=== PATIENT | female | born 1945 | race Caucasian/White ===

== ENCOUNTER 2022-02-07 14:41 | Inpatient (IN) | payer MEDICARE, MEDICAID ==
[~2022-02-07] VITALS: Ht 167.6 cm; Wt 85.0 kg
[~2022-02-07 14:41] MED LIST: ESCI20TA29 PO; PRAV40TA65 PO; VALS160T2 PO
[2022-02-07 15:49] LABS: BASOPHILS % (AUTO) 0.1 % (0-1); EOSINOPHILS # (AUTO) 0.2 X10'3 (0-0.9); EOSINOPHILS % (AUTO) 2.3 % (0-6); HEMOGLOBIN 12.1 g/dl (12.0-16.0); LYMPHOCYTES # (AUTO) 0.2 X10'3 (1.1-4.8); LYMPHOCYTES % (AUTO) 3.4 % (21-51); MEAN CORPUSCULAR HEMOGLOBIN 29.9 PG (27.0-31.0); MEAN CORPUSCULAR HGB CONC 32.7 g/dL (33.0-36.5); MEAN CORPUSCULAR VOLUME 91.4 FL (78-98); MEAN PLATELET VOLUME 7.2 FL (7.4-10.4); MONOCYTES # (AUTO) 0.4 X10'3 (0-0.9); MONOCYTES % (AUTO) 5.6 % (2-12); NEUTROPHILS # (AUTO) 6.1 X10'3 (1.8-7.7); NEUTROPHILS % (AUTO) 88.6 % (42-75); PLATELET COUNT 157 X10'3 (140-440); RED BLOOD COUNT 4.05 X10'6 (4.20-5.60); WHITE BLOOD COUNT 6.9 X10'3 (4.5-11.0)
[2022-02-07 15:58] LABS: ALANINE AMINOTRANSFERASE 33 U/L (12-78); ALBUMIN 3.6 G/DL (3.4-5.0); ALBUMIN/GLOBULIN RATIO 1.1 (1.1-1.5); ALKALINE PHOSPHATASE 46 IU/L (46-116); ANION GAP 10 (8-16); ASPARTATE AMINO TRANSFERASE 21 U/L (10-37); BILIRUBIN,TOTAL 0.4 MG/DL (0.1-1.0); BLOOD UREA NITROGEN 18 MG/DL (7-18); BUN/CREATININE RATIO 17.1 (6.6-38.0); CALCIUM 8.7 MG/DL (8.5-10.1); CHLORIDE 103 MMOL/L (99-107); CREATININE 1.05 MG/DL (0.40-0.90); GLUCOSE 161 MG/DL (70-104); POTASSIUM 3.7 MMOL/L (3.5-5.1); SODIUM 141 MMOL/L (135-145); TOTAL CARBON DIOXIDE 28.4 MMOL/L (24-32); TOTAL PROTEIN 6.8 G/DL (6.4-8.2); eGFR 51 ML/MIN
[2022-02-07] MEDS ORDERED: iohexol 350MG/ML 100ml bottle IV ONE (17:13)
[2022-02-07] MEDS ORDERED: heparin 10,000 units/1 ML INJ IV ONE ×2 (17:50→18:00)
[2022-02-07] MEDS: heparin 25,000 UNIT/250ml bag 250 ML IV SCH (18:21)
[2022-02-07] MEDS ORDERED: HYDROcodone/acetaminophen 5mg/325mg tablet PO PRN (20:35)
[2022-02-07] MEDS ORDERED: acetaminophen 325mg tablet PO PRN ×2 (20:35)
[2022-02-07] MEDS ORDERED: ondansetron/PF 4mg/2ml inj IV PRN (20:35)
[2022-02-07] MEDS ORDERED: morphine 2 MG/ML inj. syringe IV PRN (20:35)
[2022-02-07] MEDS ORDERED: heparin 25,000 UNIT/250ml bag 250 ML IV SCH (20:35)
[2022-02-07] MEDS ORDERED: heparin 10,000 units/1 ML INJ IV PRN (20:35)
[2022-02-07] MEDS ORDERED: RISP0.253 PO (20:53)
[2022-02-07] MEDS ORDERED: PEG15DRO14 EACHEYE (20:53)
[2022-02-07] MEDS ORDERED: ALBU18HF2 IH (20:53)
[2022-02-07] MEDS ORDERED: MONT-40 PO (20:53)
[2022-02-07] MEDS ORDERED: CHOL500050 PO (20:53)
[2022-02-07] MEDS ORDERED: AZEL205. BOTHNARES (20:53)
[2022-02-07] MEDS ORDERED: LOSA50TA64 PO (20:53)
[2022-02-07] MEDS ORDERED: OXYB5TAB16 PO (20:53)
[2022-02-07] MEDS ORDERED: LEVO125T8 PO (20:53)
[2022-02-07] MEDS ORDERED: METF-1203 PO (20:53)
[2022-02-07] MEDS ORDERED: OLOP5DRO26 EACHEYE (20:53)
[2022-02-07] MEDS ORDERED: ASPI-1468 PO (20:53)
[2022-02-07] MEDS ORDERED: ESCI20TA39 PO (20:53)
[2022-02-07] MEDS ORDERED: CALC-1276 PO (20:53)
[2022-02-07] MEDS ORDERED: PRAV80TA3 PO (20:53)
[2022-02-07] MEDS ORDERED: OMEP20TA5 PO (20:53)
[2022-02-07 21:20] LABS: D-DIMER 0.96 MG/L FEU (0-0.50)
[2022-02-07] MEDS: normal saline 1000ml 1,000 ML IV SCH (21:28)
--- NOTE | 2022-02-07 22:45 | NUR ---
NG TUBE PLACED. RECEIVED VO TO ORDER CXR TO VERIFY PLACEMENT. ORDER PLACED.
[2022-02-08] VITALS (7 sets, daily range): BP systolic 120–159; BP diastolic 50–70
[2022-02-08 04:10] LABS: BASOPHILS % (AUTO) 0.1 % (0-1); EOSINOPHILS # (AUTO) 0.1 X10'3 (0-0.9); EOSINOPHILS % (AUTO) 2.1 % (0-6); HEMATOCRIT 33.9 % (35.0-45.0); HEMOGLOBIN 11.2 g/dl (12.0-16.0); LYMPHOCYTES # (AUTO) 0.4 X10'3 (1.1-4.8); LYMPHOCYTES % (AUTO) 6.1 % (21-51); MEAN CORPUSCULAR HEMOGLOBIN 29.9 PG (27.0-31.0); MEAN CORPUSCULAR VOLUME 90.6 FL (78-98); MONOCYTES # (AUTO) 0.6 X10'3 (0-0.9); MONOCYTES % (AUTO) 8.2 % (2-12); NEUTROPHILS # (AUTO) 5.7 X10'3 (1.8-7.7); NEUTROPHILS % (AUTO) 83.5 % (42-75); PLATELET COUNT 143 X10'3 (140-440); RED BLOOD COUNT 3.75 X10'6 (4.20-5.60); RED CELL DISTRIBUTION WIDTH 14.8 % (11.5-14.5); WHITE BLOOD COUNT 6.8 X10'3 (4.5-11.0)
[2022-02-08 04:36] LABS: ALANINE AMINOTRANSFERASE 40 U/L (12-78); ALBUMIN 3.1 G/DL (3.4-5.0); ALBUMIN/GLOBULIN RATIO 1.1 (1.1-1.5); ALKALINE PHOSPHATASE 48 IU/L (46-116); ANION GAP 8 (8-16); ASPARTATE AMINO TRANSFERASE 32 U/L (10-37); BILIRUBIN,TOTAL 0.3 MG/DL (0.1-1.0); BLOOD UREA NITROGEN 14 MG/DL (7-18); BUN/CREATININE RATIO 16.9 (6.6-38.0); CALCIUM 7.8 MG/DL (8.5-10.1); CHLORIDE 106 MMOL/L (99-107); CREATININE 0.83 MG/DL (0.40-0.90); GLUCOSE 132 MG/DL (70-104); POTASSIUM 3.8 MMOL/L (3.5-5.1); SODIUM 143 MMOL/L (135-145); TOTAL CARBON DIOXIDE 29.5 MMOL/L (24-32); TOTAL PROTEIN 5.8 G/DL (6.4-8.2); eGFR 67 ML/MIN
[2022-02-08] MEDS: montelukast 10mg tablet PO SCH (07:42)
[2022-02-08] MEDS: levoTHYROXINE 125mcg tablet PO SCH (07:43)
[2022-02-08] MEDS: losartan 50mg tablet PO SCH (07:43)
[2022-02-08] MEDS: ESCITALOPRAM OXALATE 5 MG TABLET PO SCH (07:43)
[2022-02-08] MEDS: atorvastatin 20mg tablet PO SCH (07:43)
[2022-02-08] MEDS: pantoprazole 40mg Tablet.DR PO SCH (07:44)
[2022-02-08] MEDS: tetrahydrozoline 0.05% 15ml ophthalmic drops EACHEYE SCH ×2 (08:00→20:54)
[2022-02-08] MEDS ORDERED: PEG 400/HYPROMELLOSE/GLYCERIN 15ml bottle EACHEYE SCH (08:00)
[2022-02-08] MEDS: simethicone 80mg chew tab PO SCH ×3 (08:55→20:53)
[2022-02-08] MEDS: azelastine Nasal Spray bottle NS SCH ×2 (09:30→20:52)
[2022-02-08] MEDS: heparin 25,000 UNIT/250ml bag 250 ML IV SCH ×2 (10:30→15:10)
[2022-02-08] MEDS: normal saline 1000ml 1,000 ML IV SCH ×2 (10:53→15:02)
[2022-02-08] MEDS: metoclopramide 5 mg/ml inj IV SCH ×2 (13:28→20:11)
[2022-02-08] MEDS: sulfmethoxaz/trimethoprim inj 10 ML in dextrose 5%-water 240 ML IV SCH ×2 (15:02→20:11)
--- NOTE | 2022-02-08 18:13 | NUR ---
Problems reprioritized. Patient report given, questions answered & plan of care reviewed with Aurelia GROVER.
[2022-02-08] MEDS ORDERED: dextrose 50%-water 50ml dispensing syringe IV PRN ×2 (19:00)
[2022-02-08] MEDS ORDERED: insulin Lispro (HumaLOG) vial - multi-dose SQ SCH (19:00)
[2022-02-08] MEDS ORDERED: MESSAGE TO PHARMACY PO ONE (19:00)
[2022-02-08] MEDS ORDERED: glucagon, human recombinant 1mg kit SUBCUT PRN (19:00)
[2022-02-08] MEDS ORDERED: DEXTROSE 15 GM of carb/4 tabs (each vial/BOTTLE has 4 tablets) PO PRN ×2 (19:00)
[2022-02-08 19:31] LABS: HEMOGLOBIN A1C 6.8 % (4.5-6.2)
[2022-02-08] MEDS: heparin 10,000 units/1 ML INJ IV PRN (19:34)
[2022-02-08] MEDS: oxybutynin 5mg tablet PO SCH (20:17)
[2022-02-08] MEDS: risperiDONE 0.25mg tablet PO SCH (20:17)
[2022-02-08] MEDS: insulin glargine (Lantus) pen - multi-dose SQ SCH (21:00)
[2022-02-09] MEDS: sulfmethoxaz/trimethoprim inj 10 ML in dextrose 5%-water 240 ML IV SCH ×4 (01:56→21:45)
[2022-02-09] MEDS: metoclopramide 5 mg/ml inj IV SCH ×4 (01:58→20:42)
[2022-02-09 04:11] VITALS: BP 148/72
[2022-02-09 06:00] VITALS: BP 167/73
[2022-02-09 06:23] LABS: BASOPHILS % (AUTO) 0.2 % (0-1); EOSINOPHILS # (AUTO) 0.2 X10'3 (0-0.9); EOSINOPHILS % (AUTO) 3.5 % (0-6); HEMATOCRIT 32.5 % (35.0-45.0); HEMOGLOBIN 10.9 g/dl (12.0-16.0); LYMPHOCYTES # (AUTO) 0.7 X10'3 (1.1-4.8); LYMPHOCYTES % (AUTO) 15.6 % (21-51); MEAN CORPUSCULAR HEMOGLOBIN 30.5 PG (27.0-31.0); MEAN CORPUSCULAR HGB CONC 33.7 g/dL (33.0-36.5); MEAN CORPUSCULAR VOLUME 90.5 FL (78-98); MEAN PLATELET VOLUME 7.2 FL (7.4-10.4); MONOCYTES # (AUTO) 0.4 X10'3 (0-0.9); NEUTROPHILS # (AUTO) 3.2 X10'3 (1.8-7.7); NEUTROPHILS % (AUTO) 70.7 % (42-75); PLATELET COUNT 137 X10'3 (140-440); RED BLOOD COUNT 3.59 X10'6 (4.20-5.60); RED CELL DISTRIBUTION WIDTH 14.5 % (11.5-14.5); WHITE BLOOD COUNT 4.5 X10'3 (4.5-11.0)
[2022-02-09 06:36] LABS: ALANINE AMINOTRANSFERASE 39 U/L (12-78); ALBUMIN 2.9 G/DL (3.4-5.0); ALBUMIN/GLOBULIN RATIO 0.9 (1.1-1.5); ALKALINE PHOSPHATASE 40 IU/L (46-116); ANION GAP 7 (8-16); ASPARTATE AMINO TRANSFERASE 28 U/L (10-37); BILIRUBIN,TOTAL 0.2 MG/DL (0.1-1.0); BLOOD UREA NITROGEN 6 MG/DL (7-18); BUN/CREATININE RATIO 7.9 (6.6-38.0); CALCIUM 7.9 MG/DL (8.5-10.1); CHLORIDE 105 MMOL/L (99-107); CREATININE 0.76 MG/DL (0.40-0.90); GLUCOSE 122 MG/DL (70-104); POTASSIUM 3.7 MMOL/L (3.5-5.1); SODIUM 142 MMOL/L (135-145); TOTAL CARBON DIOXIDE 30.5 MMOL/L (24-32); eGFR 74 ML/MIN
--- NOTE | 2022-02-09 06:36 | NUR ---
Problems reprioritized. Patient report given, questions answered & plan of care reviewed with Lima GROVER.
[2022-02-09] MEDS: ESCITALOPRAM OXALATE 5 MG TABLET PO SCH (08:14)
[2022-02-09] MEDS: simethicone 80mg chew tab PO SCH ×3 (08:14→20:42)
[2022-02-09] MEDS: montelukast 10mg tablet PO SCH (08:15)
[2022-02-09] MEDS: atorvastatin 20mg tablet PO SCH (08:15)
[2022-02-09] MEDS: losartan 50mg tablet PO SCH (08:15)
[2022-02-09] MEDS: levoTHYROXINE 125mcg tablet PO SCH (08:15)
[2022-02-09] MEDS: azelastine Nasal Spray bottle NS SCH ×2 (08:18→20:42)
[2022-02-09] MEDS: heparin 25,000 UNIT/250ml bag 250 ML IV SCH (08:30)
[2022-02-09] MEDS: pantoprazole 40mg Tablet.DR PO SCH (08:49)
[2022-02-09 11:00] VITALS: BP 146/68
[2022-02-09] MEDS: tetrahydrozoline 0.05% 15ml ophthalmic drops EACHEYE SCH ×2 (11:47→20:42)
[2022-02-09] MEDS: normal saline 1000ml 1,000 ML IV SCH (11:48)
[2022-02-09 15:00] VITALS: BP 154/69
--- NOTE | 2022-02-09 18:18 | NUR ---
Problems reprioritized. Patient report given, questions answered & plan of care reviewed with Aurelia GROVER.
[2022-02-09 19:18] VITALS: BP 157/64
[2022-02-09] MEDS: risperiDONE 0.25mg tablet PO SCH (20:41)
[2022-02-09] MEDS: oxybutynin 5mg tablet PO SCH (20:41)
[2022-02-09] MEDS: insulin glargine (Lantus) pen - multi-dose SQ SCH (21:00)
[2022-02-09 22:44] VITALS: BP 110/74
[2022-02-10] MEDS: heparin 25,000 UNIT/250ml bag 250 ML IV SCH ×2 (00:30→18:46)
[2022-02-10] MEDS: sulfmethoxaz/trimethoprim inj 10 ML in dextrose 5%-water 240 ML IV SCH ×4 (03:12→19:35)
[2022-02-10] MEDS: metoclopramide 5 mg/ml inj IV SCH ×2 (03:12→08:36)
[2022-02-10 04:00] VITALS: BP 147/69
[2022-02-10] MEDS: normal saline 1000ml 1,000 ML IV SCH ×2 (05:35→20:04)
[2022-02-10 06:00] VITALS: BP 145/64
[2022-02-10 06:26] LABS: BASOPHILS % (AUTO) 0.4 % (0-1); EOSINOPHILS # (AUTO) 0.2 X10'3 (0-0.9); EOSINOPHILS % (AUTO) 3.3 % (0-6); HEMATOCRIT 31.8 % (35.0-45.0); HEMOGLOBIN 10.6 g/dl (12.0-16.0); LYMPHOCYTES # (AUTO) 0.7 X10'3 (1.1-4.8); LYMPHOCYTES % (AUTO) 14.5 % (21-51); MEAN CORPUSCULAR HEMOGLOBIN 30.5 PG (27.0-31.0); MEAN CORPUSCULAR HGB CONC 33.3 g/dL (33.0-36.5); MEAN CORPUSCULAR VOLUME 91.6 FL (78-98); MEAN PLATELET VOLUME 7.4 FL (7.4-10.4); MONOCYTES # (AUTO) 0.5 X10'3 (0-0.9); MONOCYTES % (AUTO) 8.9 % (2-12); NEUTROPHILS # (AUTO) 3.7 X10'3 (1.8-7.7); NEUTROPHILS % (AUTO) 72.9 % (42-75); PLATELET COUNT 133 X10'3 (140-440); RED BLOOD COUNT 3.47 X10'6 (4.20-5.60); RED CELL DISTRIBUTION WIDTH 14.8 % (11.5-14.5); WHITE BLOOD COUNT 5.1 X10'3 (4.5-11.0)
[2022-02-10 06:45] LABS: ALANINE AMINOTRANSFERASE 30 U/L (12-78); ALBUMIN 2.9 G/DL (3.4-5.0); ALBUMIN/GLOBULIN RATIO 0.9 (1.1-1.5); ALKALINE PHOSPHATASE 39 IU/L (46-116); ANION GAP 6 (8-16); ASPARTATE AMINO TRANSFERASE 17 U/L (10-37); BILIRUBIN,TOTAL 0.1 MG/DL (0.1-1.0); BLOOD UREA NITROGEN 5 MG/DL (7-18); BUN/CREATININE RATIO 6.1 (6.6-38.0); CALCIUM 8.2 MG/DL (8.5-10.1); CHLORIDE 102 MMOL/L (99-107); CREATININE 0.82 MG/DL (0.40-0.90); GLUCOSE 184 MG/DL (70-104); POTASSIUM 3.7 MMOL/L (3.5-5.1); SODIUM 138 MMOL/L (135-145); TOTAL CARBON DIOXIDE 29.6 MMOL/L (24-32); eGFR 68 ML/MIN
[2022-02-10] MEDS: azelastine Nasal Spray bottle NS SCH ×2 (08:35→19:56)
[2022-02-10] MEDS: tetrahydrozoline 0.05% 15ml ophthalmic drops EACHEYE SCH ×2 (08:35→19:58)
[2022-02-10] MEDS: losartan 50mg tablet PO SCH (08:35)
[2022-02-10] MEDS: simethicone 80mg chew tab PO SCH ×3 (08:35→19:52)
[2022-02-10] MEDS: levoTHYROXINE 125mcg tablet PO SCH (08:35)
[2022-02-10] MEDS: pantoprazole 40mg Tablet.DR PO SCH (08:36)
[2022-02-10] MEDS: atorvastatin 20mg tablet PO SCH (08:36)
[2022-02-10] MEDS: montelukast 10mg tablet PO SCH (08:36)
[2022-02-10] MEDS: ESCITALOPRAM OXALATE 5 MG TABLET PO SCH (08:36)
[2022-02-10 11:00] VITALS: BP 159/71
--- NOTE | 2022-02-10 12:13 | NUR ---
APtt lab result noted 58, keep current rate, will re-check at 1805.
[2022-02-10] MEDS ORDERED: furosemide 40mg/4ml inj IV ONE (12:15)
[2022-02-10] MEDS ORDERED: albuterol 2.5 MG/3 ML nebule NEB PRN (12:15)
--- NOTE | 2022-02-10 12:53 | NUR ---
patient NPO for procedure, per DR. Pretty saucedo to give PO meddication with sip of water.
[2022-02-10 15:00] VITALS: BP 147/69
[2022-02-10] MEDS: ipratropium/albuterol 3ml nebule NEB SCH ×2 (16:04→19:29)
[2022-02-10 18:00] VITALS: BP 152/70
--- NOTE | 2022-02-10 18:45 | NUR ---
Assumed pt. report from Santhosh GROVER. questions and concerns addressed. Addendum: 02/10/22 at 1856 by Barbara Ahn RN Amended: Links added.
--- NOTE | 2022-02-10 18:48 | NUR ---
Problems reprioritized. Patient report given Barbara, questions answered & plan of care reviewed with .
[2022-02-10] MEDS: budesonide 0.5mg/2ml UD nebule IH SCH (19:30)
[2022-02-10] MEDS: risperiDONE 0.25mg tablet PO SCH (19:52)
[2022-02-10] MEDS: oxybutynin 5mg tablet PO SCH (20:03)
[2022-02-10] MEDS: insulin glargine (Lantus) pen - multi-dose SQ SCH (21:00)
[2022-02-10] MEDS: heparin 10,000 units/1 ML INJ IV PRN (21:35)
[2022-02-10] MEDS: diatr meglu/diatrizoate 30ml oral sol.-(3 dose) bottle PO SCH (21:49)
[2022-02-10 22:00] VITALS: BP 152/70
[2022-02-11] MEDS: ipratropium/albuterol 3ml nebule NEB SCH ×7 (00:02→23:27)
[2022-02-11 02:00] VITALS: BP 136/61
[2022-02-11] MEDS: sulfmethoxaz/trimethoprim inj 10 ML in dextrose 5%-water 240 ML IV SCH ×4 (03:19→21:00)
[2022-02-11 04:01] LABS: APTT 67 SECONDS (22-32)
--- NOTE | 2022-02-11 05:00 | NUR ---
Pt. slept well with no s/s of active bleeding which on heparin drip this shift. PTT monitored and drip adjusted per protocol. Addendum: 02/11/22 at 0641 by Barbara Ahn RN Amended: Links added.
[2022-02-11 06:00] VITALS: BP 150/70
--- NOTE | 2022-02-11 06:30 | NUR ---
Problems reprioritized. Patient report given, questions answered & plan of care reviewed with Jami GROVER. Addendum: 02/11/22 at 0642 by Barbara Ahn RN Amended: Links added.
[2022-02-11 07:06] LABS: BASOPHILS % (AUTO) 0.3 % (0-1); EOSINOPHILS # (AUTO) 0.1 X10'3 (0-0.9); EOSINOPHILS % (AUTO) 3.1 % (0-6); HEMATOCRIT 31.9 % (35.0-45.0); HEMOGLOBIN 10.8 g/dl (12.0-16.0); LYMPHOCYTES # (AUTO) 0.8 X10'3 (1.1-4.8); LYMPHOCYTES % (AUTO) 17.7 % (21-51); MEAN CORPUSCULAR HEMOGLOBIN 30.4 PG (27.0-31.0); MEAN CORPUSCULAR HGB CONC 33.9 g/dL (33.0-36.5); MEAN CORPUSCULAR VOLUME 89.9 FL (78-98); MEAN PLATELET VOLUME 6.9 FL (7.4-10.4); MONOCYTES # (AUTO) 0.4 X10'3 (0-0.9); MONOCYTES % (AUTO) 9.4 % (2-12); NEUTROPHILS # (AUTO) 3.3 X10'3 (1.8-7.7); NEUTROPHILS % (AUTO) 69.5 % (42-75); PLATELET COUNT 145 X10'3 (140-440); RED BLOOD COUNT 3.55 X10'6 (4.20-5.60); RED CELL DISTRIBUTION WIDTH 14.5 % (11.5-14.5); WHITE BLOOD COUNT 4.8 X10'3 (4.5-11.0)
[2022-02-11] MEDS: budesonide 0.5mg/2ml UD nebule IH SCH ×2 (07:16→19:54)
[2022-02-11 07:22] LABS: ALANINE AMINOTRANSFERASE 25 U/L (12-78); ALBUMIN 2.9 G/DL (3.4-5.0); ALBUMIN/GLOBULIN RATIO 0.8 (1.1-1.5); ALKALINE PHOSPHATASE 40 IU/L (46-116); ANION GAP 8 (8-16); ASPARTATE AMINO TRANSFERASE 16 U/L (10-37); BILIRUBIN,TOTAL 0.2 MG/DL (0.1-1.0); BLOOD UREA NITROGEN 4 MG/DL (7-18); BUN/CREATININE RATIO 4.6 (6.6-38.0); CALCIUM 8.6 MG/DL (8.5-10.1); CHLORIDE 102 MMOL/L (99-107); CREATININE 0.87 MG/DL (0.40-0.90); GLUCOSE 121 MG/DL (70-104); POTASSIUM 3.8 MMOL/L (3.5-5.1); SODIUM 141 MMOL/L (135-145); TOTAL CARBON DIOXIDE 30.9 MMOL/L (24-32); TOTAL PROTEIN 6.5 G/DL (6.4-8.2); eGFR 63 ML/MIN
[2022-02-11] MEDS: levoTHYROXINE 125mcg tablet PO SCH (07:44)
[2022-02-11] MEDS: furosemide 20 MG/2 ML vial IV SCH (07:44)
[2022-02-11] MEDS: atorvastatin 20mg tablet PO SCH (07:44)
[2022-02-11] MEDS: diatr meglu/diatrizoate 30ml oral sol.-(3 dose) bottle PO SCH ×2 (07:45→21:00)
[2022-02-11] MEDS: ESCITALOPRAM OXALATE 5 MG TABLET PO SCH (07:45)
[2022-02-11] MEDS: pantoprazole 40mg Tablet.DR PO SCH (07:45)
[2022-02-11] MEDS: losartan 50mg tablet PO SCH (07:45)
[2022-02-11] MEDS: simethicone 80mg chew tab PO SCH ×3 (07:45→21:00)
[2022-02-11] MEDS: montelukast 10mg tablet PO SCH (07:45)
[2022-02-11] MEDS: azelastine Nasal Spray bottle NS SCH ×2 (07:46→20:00)
[2022-02-11] MEDS: tetrahydrozoline 0.05% 15ml ophthalmic drops EACHEYE SCH ×2 (07:55→21:35)
[2022-02-11] MEDS ORDERED: iohexol 300mg/ml 100ml inj. ONE (09:34)
--- NOTE | 2022-02-11 10:19 | NUR ---
Initial: Pt admitted w/ R acute pulmonary embolism, acute respiratory failure, abdominal ileus, and acute renal insufficiency per EMR. Pt currently on Clear liquid diet w/ mostly 0% intake of meals not meeting needs. Ileus persists and has not responded to Reglan per MD note. Pt at high risk for developing malnutrition if diet unable to be advanced. No BM documented this admit. Limited nutrition interventions at this time, will continue to monitor. Recs: 1. Advance to Regular diet as medically indicated 2. Monitor need for ONS once diet advanced 3. Bowel care per MD 4. Scaled wts Addendum: 02/11/22 at [address] Amended: Links added.
[2022-02-11] MEDS: normal saline 1000ml 1,000 ML IV SCH ×2 (10:23→19:33)
[2022-02-11 11:00] VITALS: BP 152/71
[2022-02-11] MEDS: heparin 25,000 UNIT/250ml bag 250 ML IV SCH (13:38)
--- NOTE | 2022-02-11 18:28 | NUR ---
Problems reprioritized. Patient report given, questions answered & plan of care reviewed with Gabriel GROVER.
[2022-02-11 19:00] VITALS: BP 158/71
[2022-02-11] MEDS: oxybutynin 5mg tablet PO SCH (21:00)
[2022-02-11] MEDS: insulin glargine (Lantus) pen - multi-dose SQ SCH (21:00)
[2022-02-11] MEDS: risperiDONE 0.25mg tablet PO SCH (21:00)
[2022-02-11 22:00] VITALS: BP 168/70
[2022-02-12] MEDS: sulfmethoxaz/trimethoprim inj 10 ML in dextrose 5%-water 240 ML IV SCH ×4 (01:47→22:17)
[2022-02-12] MEDS: ipratropium/albuterol 3ml nebule NEB SCH ×6 (03:16→23:43)
[2022-02-12 05:51] LABS: BASOPHILS % (AUTO) 0.2 % (0-1); EOSINOPHILS # (AUTO) 0.2 X10'3 (0-0.9); EOSINOPHILS % (AUTO) 4.9 % (0-6); HEMATOCRIT 33.3 % (35.0-45.0); HEMOGLOBIN 11.2 g/dl (12.0-16.0); LYMPHOCYTES # (AUTO) 0.6 X10'3 (1.1-4.8); LYMPHOCYTES % (AUTO) 13.1 % (21-51); MEAN CORPUSCULAR HEMOGLOBIN 30.4 PG (27.0-31.0); MEAN CORPUSCULAR HGB CONC 33.5 g/dL (33.0-36.5); MEAN CORPUSCULAR VOLUME 90.5 FL (78-98); MEAN PLATELET VOLUME 7.1 FL (7.4-10.4); MONOCYTES # (AUTO) 0.4 X10'3 (0-0.9); MONOCYTES % (AUTO) 9.4 % (2-12); NEUTROPHILS # (AUTO) 3.3 X10'3 (1.8-7.7); NEUTROPHILS % (AUTO) 72.4 % (42-75); PLATELET COUNT 165 X10'3 (140-440); RED BLOOD COUNT 3.67 X10'6 (4.20-5.60); RED CELL DISTRIBUTION WIDTH 14.7 % (11.5-14.5); WHITE BLOOD COUNT 4.6 X10'3 (4.5-11.0)
[2022-02-12 06:00] VITALS: BP 139/73
[2022-02-12 06:15] LABS: ALANINE AMINOTRANSFERASE 32 U/L (12-78); ALBUMIN/GLOBULIN RATIO 0.9 (1.1-1.5); ALKALINE PHOSPHATASE 41 IU/L (46-116); ANION GAP 6 (8-16); ASPARTATE AMINO TRANSFERASE 26 U/L (10-37); BILIRUBIN,TOTAL 0.2 MG/DL (0.1-1.0); BLOOD UREA NITROGEN 6 MG/DL (7-18); BUN/CREATININE RATIO 6.8 (6.6-38.0); CALCIUM 8.6 MG/DL (8.5-10.1); CHLORIDE 101 MMOL/L (99-107); CREATININE 0.88 MG/DL (0.40-0.90); GLUCOSE 124 MG/DL (70-104); POTASSIUM 3.8 MMOL/L (3.5-5.1); SODIUM 137 MMOL/L (135-145); TOTAL CARBON DIOXIDE 30.3 MMOL/L (24-32); TOTAL PROTEIN 6.3 G/DL (6.4-8.2); eGFR 62 ML/MIN
[2022-02-12] MEDS: budesonide 0.5mg/2ml UD nebule IH SCH ×2 (07:09→19:44)
[2022-02-12] MEDS: pantoprazole 40mg Tablet.DR PO SCH (08:17)
[2022-02-12] MEDS: losartan 50mg tablet PO SCH (08:17)
[2022-02-12] MEDS: simethicone 80mg chew tab PO SCH ×3 (08:17→22:16)
[2022-02-12] MEDS: ESCITALOPRAM OXALATE 5 MG TABLET PO SCH (08:17)
[2022-02-12] MEDS: levoTHYROXINE 125mcg tablet PO SCH (08:17)
[2022-02-12] MEDS: atorvastatin 20mg tablet PO SCH (08:17)
[2022-02-12] MEDS: furosemide 20 MG/2 ML vial IV SCH (08:17)
[2022-02-12] MEDS: montelukast 10mg tablet PO SCH (08:17)
[2022-02-12] MEDS: tetrahydrozoline 0.05% 15ml ophthalmic drops EACHEYE SCH ×2 (08:18→20:00)
[2022-02-12] MEDS: azelastine Nasal Spray bottle NS SCH ×2 (08:18→22:16)
[2022-02-12] MEDS: heparin 25,000 UNIT/250ml bag 250 ML IV SCH (08:54)
[2022-02-12 11:00] VITALS: BP 143/69
--- NOTE | 2022-02-12 12:38 | NUR ---
O2 Sat at rest on room air:_84__% If below 89%: Recovery O2 Sat at rest on _3__LPM:_91__%:___% via__nasal cannula_(mask/nasal cannula, etc..) No further documentation is necessary. If O2 Sat did not drop below 89% on room air,ambulate patient on room air. O2 Sat while ambulating on room air:___% Recovery O2 Sat while ambulating on ___LPM:___% No further documentation is necessary. If patient does not drop below 89% while ambulating, he/she does not qualify for home O2.
[2022-02-12 15:00] VITALS: BP 102/60
[2022-02-12] MEDS ORDERED: bisacodyl 10mg suppository rectal RC STA (15:28)
[2022-02-12] MEDS: normal saline 1000ml 1,000 ML IV SCH (16:17)
--- NOTE | 2022-02-12 18:04 | NUR ---
pt still constipated.. despite dulcolax suppository was given, made aware thru paged as instructed. will continue to monitor patient. PAGER ID: [phone] MESSAGE: [id number] HOFFMAN: doc, 2hours after dulcolax suppostiory was given still no bowel movement, but she has the urge, attempted to defecate twice but unsuccessful, she said she will still try again.
[2022-02-12] MEDS: insulin glargine (Lantus) pen - multi-dose SQ SCH (21:00)
[2022-02-12 22:00] VITALS: BP 165/76
[2022-02-12] MEDS: risperiDONE 0.25mg tablet PO SCH (22:16)
[2022-02-12] MEDS: oxybutynin 5mg tablet PO SCH (22:16)
[2022-02-13 02:00] VITALS: BP 148/70
[2022-02-13] MEDS: sulfmethoxaz/trimethoprim inj 10 ML in dextrose 5%-water 240 ML IV SCH ×4 (02:12→20:00)
[2022-02-13] MEDS: heparin 25,000 UNIT/250ml bag 250 ML IV SCH (02:15)
[2022-02-13] MEDS: ipratropium/albuterol 3ml nebule NEB SCH ×6 (03:48→23:08)
[2022-02-13] MEDS: normal saline 1000ml 1,000 ML IV SCH ×2 (05:24→15:28)
[2022-02-13 06:00] VITALS: BP 172/74
[2022-02-13] MEDS: budesonide 0.5mg/2ml UD nebule IH SCH ×2 (07:38→19:32)
[2022-02-13] MEDS: ESCITALOPRAM OXALATE 5 MG TABLET PO SCH (07:43)
[2022-02-13] MEDS: atorvastatin 20mg tablet PO SCH (07:44)
[2022-02-13] MEDS: furosemide 20 MG/2 ML vial IV SCH (07:44)
[2022-02-13] MEDS: simethicone 80mg chew tab PO SCH ×3 (07:44→20:49)
[2022-02-13] MEDS: montelukast 10mg tablet PO SCH (07:44)
[2022-02-13] MEDS: pantoprazole 40mg Tablet.DR PO SCH (07:44)
[2022-02-13] MEDS: losartan 50mg tablet PO SCH (07:44)
[2022-02-13] MEDS: levoTHYROXINE 125mcg tablet PO SCH (07:44)
[2022-02-13] MEDS: azelastine Nasal Spray bottle NS SCH ×2 (07:45→20:49)
[2022-02-13] MEDS: tetrahydrozoline 0.05% 15ml ophthalmic drops EACHEYE SCH ×2 (07:45→20:49)
[2022-02-13] MEDS ORDERED: bisacodyl 5mg tablet.DR PO ONE (10:20)
[2022-02-13] MEDS ORDERED: APIX5TAB3 PO (10:27)
[2022-02-13] MEDS ORDERED: DOCU-148 PO (10:29)
[2022-02-13] MEDS ORDERED: BISA-78 PO (10:29)
[2022-02-13 11:00] VITALS: BP 164/72
--- NOTE | 2022-02-13 13:23 | NUR ---
not tolerating advanced diet, patient felt nauseated.. made aware thru paged. PAGER ID: [phone] MESSAGE: [id number] HOFFMAN: doc, patient is not tolerating the regular diet though she tried but felt nauseated after a couple of bites. pls advise.
[2022-02-13] MEDS ORDERED: PEG 3350/Na sulf,bicarb,Cl/KCl oral sol 4 liter bottle PO ONE (13:50)
[2022-02-13 15:00] VITALS: BP 153/71
[2022-02-13 18:00] VITALS: BP 132/68
--- NOTE | 2022-02-13 18:17 | NUR ---
Problems reprioritized. Patient report given, questions answered & plan of care reviewed with Catherine GROVER.
[2022-02-13] MEDS: oxybutynin 5mg tablet PO SCH (20:49)
[2022-02-13] MEDS: risperiDONE 0.25mg tablet PO SCH (20:50)
[2022-02-13] MEDS: insulin glargine (Lantus) pen - multi-dose SQ SCH (21:00)
[2022-02-13 22:00] VITALS: BP 119/65
[2022-02-14 02:00] VITALS: BP 145/68
[2022-02-14] MEDS: sulfmethoxaz/trimethoprim inj 10 ML in dextrose 5%-water 240 ML IV SCH ×2 (02:00→07:37)
[2022-02-14] MEDS: ipratropium/albuterol 3ml nebule NEB SCH ×3 (03:30→10:38)
--- NOTE | 2022-02-14 05:04 | NUR ---
Antibiotic late administration. Orders to skip 0200 dose and give 0800. Will endorse to oncoming nurse.
[2022-02-14 06:00] VITALS: BP 142/69
[2022-02-14] MEDS: budesonide 0.5mg/2ml UD nebule IH SCH (07:18)
[2022-02-14] MEDS: furosemide 20 MG/2 ML vial IV SCH (07:35)
[2022-02-14] MEDS: simethicone 80mg chew tab PO SCH (07:35)
[2022-02-14] MEDS: atorvastatin 20mg tablet PO SCH (07:35)
[2022-02-14] MEDS: montelukast 10mg tablet PO SCH (07:36)
[2022-02-14] MEDS: levoTHYROXINE 125mcg tablet PO SCH (07:36)
[2022-02-14] MEDS: losartan 50mg tablet PO SCH (07:36)
[2022-02-14] MEDS: tetrahydrozoline 0.05% 15ml ophthalmic drops EACHEYE SCH (07:36)
[2022-02-14] MEDS: azelastine Nasal Spray bottle NS SCH (07:36)
[2022-02-14] MEDS: ESCITALOPRAM OXALATE 5 MG TABLET PO SCH (07:36)
[2022-02-14] MEDS: pantoprazole 40mg Tablet.DR PO SCH (07:36)
[2022-02-14] MEDS: normal saline 1000ml 1,000 ML IV SCH (07:47)
[2022-02-14 11:00] VITALS: BP 154/74
--- NOTE | 2022-02-14 13:00 | NUR ---
discharge instructions were explained to patient prior to discharge, stable for discharge as per MD, PIV discontinued with iv cannula tip complete and intact.
== END 2022-02-14 12:50 | disposition home or self-care (01) | DRG 175 ==
LOC: ER 14:41 → ED HOLD 20:36 → PCU 3S 22:35
PROVIDERS: ADMIT Internal Medicine; ATTEND Family Medicine
PROC: 0D9670Z Drainage of Stomach with Drainage Device, Via Natural or Artificial Opening (ICD-10-PCS; principal; 2022-02-07)
PROC: B32T1ZZ Computerized Tomography (CT Scan) of Left Pulmonary Artery using Low Osmolar Contrast (ICD-10-PCS; 2022-02-07)
PROC: B3201ZZ Computerized Tomography (CT Scan) of Thoracic Aorta using Low Osmolar Contrast (ICD-10-PCS; 2022-02-07)
PROC: B32S1ZZ Computerized Tomography (CT Scan) of Right Pulmonary Artery using Low Osmolar Contrast (ICD-10-PCS; 2022-02-07)
PROC: BW211ZZ Computerized Tomography (CT Scan) of Abdomen and Pelvis using Low Osmolar Contrast (ICD-10-PCS; 2022-02-11)
DX: I26.99 Other pulmonary embolism without acute cor pulmonale (principal); J96.01 Acute respiratory failure with hypoxia; K56.7 Ileus, unspecified; Z20.822 Contact with and (suspected) exposure to COVID-19; D73.89 Other diseases of spleen; E03.9 Hypothyroidism, unspecified; E11.22 Type 2 diabetes mellitus with diabetic chronic kidney disease; N18.30 Chronic kidney disease, stage 3 unspecified; Z79.01 Long term (current) use of anticoagulants; Z79.84 Long term (current) use of oral hypoglycemic drugs; Z87.820 Personal history of traumatic brain injury; Z79.899 Other long term (current) drug therapy
CPT/HCPCS: 36415; 71045; 71275; 74018; 74176; 74177; 80053; 82948; 83036; 83605; 83880; 84443; 84484; 85025; 85379; 85730; 87040; 87081; 87635; 92508; 92616; 93005; 93306; 94640; 94760; 96365; 96376; 97110; 97116; 97162; 97530; 99285; C9803; G0378; J1644; J1815; J1940; J2405; J2765; J3490; J7030; J7060; Q9963; Q9967